=== PATIENT | male | born 1985 | race Caucasian/White ===

== ENCOUNTER 2023-11-21 19:44 | Emergency (ER) | payer SELFPAY ==
[2023-11-21 19:49] VITALS: BP 134/97; PULSE 125
[2023-11-21] MEDS: Promethazine 25 MG in Sodium Chloride 0.9% 100 ML IV ONE (20:06)
[2023-11-21 20:22] LABS: BASOPHILS ABSOLUTE AUTO 0.05 10^3/uL (0.00-0.50); BASOPHILS PERCENT AUTO 0.3 % (0-1); EOSINOPHILS ABSOLUTE AUTO 0.02 10^3/uL (0.00-1.50); EOSINOPHILS PERCENT AUTO 0.1 % (0-6); HEMATOCRIT 54.3 % (42.0-52.0); HEMOGLOBIN 17.6 g/dL (14.0-18.0); IMMATURE GRAN ABSOLUTE AUTO 0.03 10^3/uL (0.00-0.49); IMMATURE GRAN PERCENT AUTO 0.2 % (0.0-4.9); LYMPHOCYTES ABSOLUTE AUTO 0.67 10^3/uL (0.60-5.00); LYMPHOCYTES PERCENT AUTO 3.7 % (24-44); MEAN CORPUSCULAR HEMOGLOBIN 30.1 pg (27.0-32.0); MEAN CORPUSCULAR HGB CONC 32.4 g/dL (32.0-36.0); MONOCYTES ABSOLUTE AUTO 1.26 10^3/uL (0.00-1.50); MONOCYTES PERCENT AUTO 6.9 % (0-10); NEUTROPHILS ABSOLUTE AUTO 16.14 x10^3/uL (1.80-8.00); NEUTROPHILS PERCENT AUTO 88.8 % (41-71); PLATELET COUNT,PLT 443 10^3/uL (150-400); RED BLOOD CELL COUNT 5.84 x10^6/uL (4.50-6.00); WHITE BLOOD CELL COUNT,WBC 18.2 10^3/uL (4.0-11.0)
[2023-11-21] MEDS: Acetaminophen 500 MG Tab PO ONE (20:26)
[2023-11-21 20:30] LABS: APPEARANCE,URINE CLEAR (CLEAR); COLOR,URINE DARK YELLOW (YELLOW); PH,URINE 5.5 (4.5-8.0)
[2023-11-21 20:31] LABS: BILIRUBIN,URINE NEGATIVE (NEGATIVE); GLUCOSE,URINE NEGATIVE (NEGATIVE); KETONES,URINE NEGATIVE (NEGATIVE); LEUKOCYTE ESTERASE,URINE NEGATIVE (NEGATIVE); NITRITE,URINE NEGATIVE (NEGATIVE); OCCULT BLOOD,URINE NEGATIVE (NEGATIVE); PROTEIN,URINE NEGATIVE (NEGATIVE); UROBILINOGEN,URINE 0.2 EU/dL (0.2-1.0)
[2023-11-21 20:32] LABS: POTASSIUM,K 4.4 mEq/L (3.5-5.0)
[2023-11-21 20:33] LABS: ALBUMIN 3.4 g/dL (3.4-5.0); C-REACTIVE PROTEIN 1.2 mg/dL (<=0.50); CALCIUM 9.1 mg/dL (8.4-10.1); CREATININE 1.4 mg/dL (0.7-1.3); EST CRCL DRUG DOSING (CG) 87.18 mL/min
[2023-11-21 20:34] LABS: BILIRUBIN TOTAL 0.6 mg/dL (0.0-1.0); PROTEIN TOTAL,TP 8.2 g/dL (6.4-8.2)
[2023-11-21] MEDS: Iopamidol 755 Mg/ML 100 ML Bottle IVPUSH ONE (20:54)
[2023-11-21] MEDS ORDERED: cefTRIAXone 1 GM, Lidocaine 1% 2.1 ML IM STA (21:45)
[2023-11-21] MEDS: cefTRIAXone 1 GM Vial IVPUSH ONE (21:54)
[2023-11-21] MEDS: Take Home: Ondansetron 4 MG Tab.DIS, 2 Tab Pack PO ONE (22:24)
== END 2023-11-21 22:24 | disposition home or self-care (01) ==
LOC: CC.ED 19:44
DX: R11.2 Nausea with vomiting, unspecified (principal); R19.7 Diarrhea, unspecified; R50.9 Fever, unspecified; D72.829 Elevated white blood cell count, unspecified; Z88.0 Allergy status to penicillin; Z88.1 Allergy status to other antibiotic agents; Z88.8 Allergy status to other drugs, medicaments and biological substances; Z88.2 Allergy status to sulfonamides
CPT/HCPCS: 36415; 74177; 80053; 81003; 85025; 86140; 87428-QW; 96374; 96375; 99284; 99284-25; A9270-GY; J0696; J2550; J3490; Q9967